=== PATIENT | female | born 1985 | race Caucasian/White ===

== ENCOUNTER 2020-01-02 10:29 | Emergency (ER) | payer BC ==
[2020-01-02] MEDS ORDERED: ONDANSETRON HCL INJ/PF 4 MG/2 ML SDV IV ONE (12:33)
[2020-01-02] MEDS ORDERED: MECLIZINE HCL 25 MG TABLET PO ONE (12:33)
[2020-01-02] MEDS ORDERED: NORMAL SALINE 1000 ML 1,000 ML IV ONE (12:33)
--- NOTE | 2020-01-02 12:36 | ER Document Report ---
ED Medical Screen (RME) - General Chief Complaint: Abdominal Pain Stated Complaint: DIZZYNESS/NAUSEA/UPPER ABDOMINAL PAIN Time Seen by Provider: 01/02/20 12:28 Notes: Patient is a 34-year-old female presents emergency department with a chief co mplaint of abdominal pain. Patient reports he has had upper abdominal pain located in the epigastric region as well as the right upper quadrant for about 1 week. Patient reports that she has had her gallbladder removed and 3 C- sections. Patient reports she has had this abdominal pain in the past. Patient reports that she also woke up this morning with 4 episodes of vomiting and vertigo. Patient reports she had vertigo 9 years ago and that this feels the same. Patient denies urinary symptoms but does report having bilateral flank pain. Patient reports she does have a history of chronic back pain and cannot differentiate if this is the same or different. Patient denies fever. TRAVEL OUTSIDE OF THE [place] IN LAST 30 DAYS: No - Related Data Allergies/Adverse Reactions: lorazepam [From Ativan] Allergy (Verified 01/02/20 12:26) Penicillins Allergy (Verified 01/02/20 12:26) Past Medical History - Social History Chew tobacco use (# tins/day): No Frequency of alcohol use: None Drug Abuse: None Physical Exam - Vital signs Vitals: Temp Pulse Resp BP Pulse Ox 98.2 F 73 18 110/68 97 01/02/20 10:48 01/02/20 10:48 01/02/20 10:48 01/02/20 10:48 01/02/20 10:48 - Abdominal Inspection: Normal Distension: No distension Bowel sounds: Normal Tenderness: Nontender Organomegaly: No organomegaly Course - Re-evaluation Re-evalutation: 01/02/20 12:35 Patient require a thorough abdominal exam once placed in a private room. Will obtain basic labs, give IV fluids and meclizine for the dizziness. Patient n ontoxic-appearing in triage. Also give anti-emetic I have greeted and performed a rapid initial assessment of this patient. A comprehensive ED assessment and evaluation of the patient, analysis of test results and completion of the medical decision making process will be conducted by additional ED providers. - Vital Signs Vital signs: Temp Pulse Resp BP Pulse Ox 98.2 F 73 18 110/68 97 01/02/20 10:48 01/02/20 10:48 02/12/20 10:48 01/02/20 10:48 01/02/20 10:48
[2020-01-02 13:47] LABS: ABSOLUTE BASOPHILS # (AUTO) 0.1 10^3/uL (0.0-0.2); ABSOLUTE EOSINOPHILS # (AUTO) 0.2 10^3/uL (0.0-0.6); ABSOLUTE LYMPHOCYTES (AUTO) 2.4 10^3/uL (0.5-4.7); ABSOLUTE MONOCYTES (AUTO) 0.7 10^3/uL (0.1-1.4); ABSOLUTE NEUT (AUTO) 5.9 10^3/uL (1.7-8.2); BASOPHILS % (AUTO) 0.8 % (0-2); EOSINOPHILS % (AUTO) 1.9 % (0-6); HEMATOCRIT 42.8 % (36.0-47.0); HEMOGLOBIN 14.6 g/dL (12.0-15.5); LYMPHOCYTES % (AUTO) 26.2 % (13-45); MEAN CORPUSCULAR HEMOGLOBIN 31.5 pg (27.0-33.4); MEAN CORPUSCULAR HGB CONC 34.1 g/dL (32.0-36.0); MEAN CORPUSCULAR VOLUME 92 fl (80-97); MONOCYTES % (AUTO) 7.7 % (3-13); PLATELET COUNT 300 10^3/uL (150-450); RED BLOOD COUNT 4.64 10^6/uL (3.72-5.28); RED CELL DISTRIBUTION WIDTH 13.4 % (11.5-14.0); SEGMENTED NEUTROPHILS % (AUTO) 63.4 % (42-78); TOTAL CELLS COUNTED % (AUTO) 100 %; WHITE BLOOD COUNT 9.3 10^3/uL (4.0-10.5)
[2020-01-02 14:05] LABS: APPEARANCE,URINE SLIGHTLY-CLOUDY; BILIRUBIN,URINE NEGATIVE (NEGATIVE); COLOR,URINE YELLOW; GLUCOSE, URINE NEGATIVE (NEGATIVE); KETONES,URINE NEGATIVE (NEGATIVE); LEUKOCYTE ESTERASE,URINE NEGATIVE (NEGATIVE); NITRITE,URINE NEGATIVE (NEGATIVE); PROTEIN,URINE NEGATIVE (NEGATIVE); URINE SPECIFIC GRAVITY 1.021; UROBILINOGEN,URINE NEGATIVE mg/dL (<2.0)
[2020-01-02 14:12] LABS: ALBUMIN 3.6 g/dL (3.5-5.0); ALKALINE PHOSPHATASE 109 U/L (38-126); ANION GAP 9 (5-19); ASPARTATE AMINO TRANSFERASE 24 U/L (14-36); BILIRUBIN,DIRECT 0.2 mg/dL (0.0-0.4); BILIRUBIN,TOTAL 0.6 mg/dL (0.2-1.3); BLOOD UREA NITROGEN 13 mg/dL (7-20); CALCIUM 8.9 mg/dL (8.4-10.2); CARBON DIOXIDE 20 mmol/L (22-30); CHLORIDE 107 mmol/L (98-107); GLUCOSE 89 mg/dL (75-110); POTASSIUM 4.6 mmol/L (3.6-5.0); TOTAL PROTEIN 6.9 g/dL (6.3-8.2)
[2020-01-02] MEDS ORDERED: MORPHINE SULFATE 10 MG/ML INJ IV ONE (14:25)
--- NOTE | 2020-01-02 14:31 | ER Document Report ---
ED General - General Chief Complaint: Abdominal Pain Stated Complaint: DIZZYNESS/NAUSEA/UPPER ABDOMINAL PAIN Time Seen by Provider: 01/02/20 12:28 Primary Care Provider: [facility] [Provider Group] - Follow up in 3-5 days ISELA EUCEDA MD [ACTIVE STAFF] - Follow up in 1 week JOI FLORES MD [ACTIVE STAFF] - Follow up in 3-5 days Notes: 34-year-old female with history of cholecystectomy presents with epigastric to right upper quadrant pain for 1 week. Is worse with movement, better with rest. She has a constant dull and intermittent stabbing pains. Patient states the vertigo and nausea and vomiting started today. Patient states she felt a little "off" yesterday. Patient denies any fever, chills, diarrhea, constipation, urinary symptoms. Patient states she has had her gallbladder taken out and intussusception of her intestines. Patient states that the dizziness feels like her usual vertigo. States it is worse with standing up and moving. TRAVEL OUTSIDE OF THE [place] IN LAST 30 DAYS: No - Related Data Allergies/Adverse Reactions: lorazepam [From Ativan] Allergy (Verified 01/02/20 12:26) Penicillins Allergy (Verified 01/02/20 12:26) Past Medical History - General Information source: Patient - Social History Smoking Status: Unknown if Ever Smoked Chew tobacco use (# tins/day): No Frequency of alcohol use: None Drug Abuse: None Family History: None Patient has suicidal ideation: No Patient has homicidal ideation: No Review of Systems - Review of Systems Notes: Constitutional: Negative for fever. HENT: Negative for sore throat. Eyes: Negative for visual changes. Cardiovascular: Negative for chest pain. Respiratory: Negative for shortness of breath. Gastrointestinal: Positive for abdominal pain, nausea and vomiting. Negative for diarrhea.. Genitourinary: Negative for dysuria. Musculoskeletal: Negative for back pain. Skin: Negative for rash. Neurological: Positive for dizziness. Negative for headaches, weakness or numbness. 10 point ROS negative except as marked above and in HPI.. Physical Exam - Vital signs Vitals: Temp Pulse Resp BP Pulse Ox 98.2 F 73 18 110/68 97 01/02/20 10:48 01/02/20 10:48 01/02/20 10:48 01/02/20 10:48 01/02/20 10:48 - Notes Notes: GENERAL: Well-appearing, well-nourished and in no acute distress. HEAD: Atraumatic, normocephalic. EYES: Pupils equal round and reactive to light, extraocular movements intact, sclera anicteric, conjunctiva are normal. NECK: Normal range of motion, supple without lymphadenopathy or JVD. LUNGS: Breath sounds clear to auscultation bilaterally and equal. No wheezes rales or rhonchi. HEART: Regular rate and rhythm without murmurs, rubs or gallops. ABDOMEN: Soft, tenderness to epigastric and RUQ. No guarding, no rebound. No masses appreciated. EXTREMITIES: Normal range of motion, no pitting or edema. No clubbing or cyanosis. NEUROLOGICAL: Cranial nerves II through XII grossly intact. Normal speech, normal gait. PSYCH: Normal mood, normal affect. SKIN: Warm, Dry, normal turgor, no rashes or lesions noted. Course - Re-evaluation Re-evalutation: 01/02/20 Nontoxic, well appearing 34 y/o female presents for abdominal pain and nausea/vomiting/vertigo. Abd soft, tenderness to epigastric/RUQ. Nonsurgical abdomen. PE otherwise unremarkable. Labwork is reassuring, no leukocytosis. CT abdomen/pelvis ordered to further evaluate abd pain. 01/02/20 16:30 PO challenge passed. Pt's CT abdomen/pelvis is negative. Discussed all results with pt and pt given strict return precautions. Pt also given close follow up with PCP. Pt voices understanding and agrees with plan of care. - Vital Signs Vital signs: Temp Pulse Resp BP Pulse Ox 98.2 F 73 18 110/68 97 01/02/20 10:48 01/02/20 10:48 01/02/20 10:48 01/02/20 10:48 01/02/20 10:48 - Laboratory Result Diagrams: 01/02/20 13:15 01/02/20 13:15 Laboratory results interpreted by me: 01/02/20 01/02/20 13:15 13:15 Sodium 135.9 L Carbon Dioxide 20 L Creatinine 0.47 L Urine Ascorbic Acid 20 H Discharge - Discharge Clinical Impression: Epigastric pain, Vertigo Nausea & vomiting Qualifiers: Vomiting type: unspecified Vomiting Intractability: unspecified Qualified Code(s): R11.2 - Nausea with vomiting, unspecified Condition: Stable Disposition: HOME, SELF-CARE Instructions: Abdominal Pain ([facility]), Antinausea Medication ([facility]), Intravenous (IV) Fluids ([facility]), Vertigo ([facility]), Vomiting ([facility]) Additional Instructions: Your CT scan showed some kidney stones but otherwise was normal. Please take medication as prescribed. Please follow-up with your primary care doctor or 1 of the clinics listed in 3 to 5 days. Please follow-up with GI doctor listed in 1 week. Return immediately to ER for any worsening symptoms, including worsening pain, worsening dizziness, vomiting not controlled by medication, fever, diarrhea/constipation, inability to have a bowel movement, not passing gas, chest pain, shortness of breath, or any other symptoms that are concerning to you. Prescriptions: Ondansetron [Zofran Odt 4 mg Tablet] 4 mg PO Q4HP PRN #30 tab.rapdis PRN Reason: Meclizine HCl [Antivert 25 mg Tablet] 25 mg PO TID PRN #21 tablet PRN Reason: Dicyclomine HCl [Bentyl 20 mg Tablet] 20 mg PO QID #40 tablet Forms: Return to Work Referrals: ISELA EUCEDA MD [ACTIVE STAFF] - Follow up in 1 week JOI FLORES MD [ACTIVE STAFF] - Follow up in 3-5 days [facility] [Provider Group] - Follow up in 3-5 days
--- NOTE | 2020-01-02 15:24 | RADIOLOGY REPORT (SQ) ---
EXAM DESCRIPTION: CT ABD/PELVIS WITH IV ONLY COMPLETED DATE/TIME: 01/02/2020 3:07 pm REASON FOR STUDY: Epigastric to RUQ pain, nausea/vomiting, hx jh COMPARISON: None. TECHNIQUE: CT scan of the abdomen and pelvis performed using helical scanning technique with dynamic intravenous contrast injection. No oral contrast. Images reviewed with lung, soft tissue, and bone windows. Reconstructed coronal and sagittal MPR images reviewed. Delayed images for evaluation of the urinary system also acquired. All images stored on PACS. All CT scanners at this facility use dose modulation, iterative reconstruction, and/or weight based d osing when appropriate to reduce radiation dose to as low as reasonably achievable (ALARA). [facility]: Dose Right [facility]: CareDose [facility]: Dose Right [facility]: Teradose 4D [facility]: Ryzing CONTRAST TYPE AND DOSE: contrast/concentration: Isovue 350.00 mg/ml; Total Contrast Delivered: 87.0 ml; Total Saline Delivered: 46.3 ml RENAL FUNCTION: BUN 13 creatinine 0.47. RADIATION DOSE: CT Rad equipment meets quality standard of care and radiation dose reduction techniq ues were employed. CTDIvol: 11.2 - 14.4 mGy. DLP: 1384 mGy-cm.. LIMITATIONS: None. FINDINGS: LOWER CHEST: No significant findings. No nodules or infiltrates. LIVER: Normal size. No masses. No dilated ducts. SPLEEN: Normal size. No focal lesions. PANCREAS: No masses. No significant calcifications. No adjacent inflammation or peripancreatic fluid collections. Pancreatic duct not dilated. GALLBLADDER: Surgically absent. ADRENAL GLANDS: No significant masses or asymmetry. RIGHT KIDNEY AND URETER: No solid masses. Tiny punctate calyceal calculus. No hydronephrosis or h ydroureter. LEFT KIDNEY AND URETER: No solid masses. Tiny punctate calyceal calculi. No hydronephrosis or hyd roureter. AORTA AND VESSELS: No aneurysm. No dissection. Renal arteries, SMA, celiac without stenosis. RETROPERITONEUM: No retroperitoneal adenopathy, hemorrhage or masses. BOWEL AND PERITONEAL CAVITY: No masses or inflammatory changes. No free fluid or peritoneal masses. APPENDIX: Normal. PELVIS: No mass. No free fluid. Normal bladder. ABDOMINAL WALL: No masses. No hernias. BONES: No significant or acute findings. OTHER: No other significant finding. IMPRESSION: TINY PUNCTATE NONOBSTRUCTING CALYCEAL CALCULI IN BOTH KIDNEYS. NO OTHER SIGNIFICANT OR ACUTE FINDING IN THE ABDOMEN OR PELVIS ON CT SCAN WITH IV CONTRAST. TECHNICAL DOCUMENTATION: JOB ID: [id number] Quality ID # [id number]: Final reports with documentation of one or more dose reduction techniques (e.g., Au tomated exposure control, adjustment of the mA and/or kV according to patient size, use of iterative reconstruction technique) 2010 [employer]- All Rights Reserved Reading location - IP/workstation name: [email or web address]
[2020-01-02 18:51] VITALS: BP 130/72
== END 2020-01-02 19:20 | disposition home or self-care (01) ==
LOC: ER 10:29
DX: R10.13 Epigastric pain (principal); R42 Dizziness and giddiness; R10.11 Right upper quadrant pain; R11.2 Nausea with vomiting, unspecified; Z90.49 Acquired absence of other specified parts of digestive tract; Z88.0 Allergy status to penicillin
CPT/HCPCS: 36415; 83690; 85025; 81025; 80053; 81001; 74177; J2270; J2405; J7030